=== PATIENT | female | born 1985 | race African-American/Black ===

== ENCOUNTER 2022-09-12 07:52 | Observation (INO) | payer BC ==
[~2022-09-12] VITALS: Ht 157.5 cm; Wt 69.9 kg
[2022-09-12] MEDS ORDERED: NIFEdipine 10 MG CAPLF PO SCH ×2 (08:25→12:00)
[2022-09-12] MEDS ORDERED: BETAMETH ACET/BETAMETH NA PH 30 MG/5 ML VIAL IM SCH (08:25)
[2022-09-12] MEDS: TERBUTALINE 1 MG/ML VIAL SUBQ SCH ×2 (08:49→11:21)
[2022-09-12 09:14] LABS: HEMATOCRIT 33.8 % (36-48); HEMOGLOBIN 11.2 g/dL (12.0-16.0); MEAN CORPUSCULAR HEMOGLOBIN 29 pg (27-31); MEAN CORPUSCULAR HGB CONC 33 g/dL (33-37); MEAN CORPUSCULAR VOLUME 87.7 fL (80-94); PLATELET COUNT (AUTO) 173 K/uL (140-450); RED BLOOD CELL COUNT(AUTO) 3.85 MIL/uL (4.20-5.40); RED CELL DISTRIBUTION WIDTH 13.5 % (11.6-13.7); WHITE BLOOD COUNT (AUTO) 8.5 K/uL (4.8-10.8)
[2022-09-12 09:34] VITALS: BP 117/71
[2022-09-12 09:34] LABS: ALBUMIN 2.5 g/dL (3.4-5.0); AMYLASE 82 U/L (25-115); ANION GAP 12.6 (8-16); ASPARTATE AMINOTRANSFERASE 18 U/L (15-37); CARBON DIOXIDE 25.3 mmol/L (21-32); CHLORIDE 102 mmol/L (98-107); CREATININE 0.6 mg/dL (0.6-1.3); GFR ARICAN-AMERICAN 146 mL/min (>90); GLUCOSE 86 mg/dL (74-106); POTASSIUM 3.9 mmol/L (3.5-5.1); SODIUM SERUM 136 mmol/L (136-145); TOTAL BILIRUBIN 0.3 mg/dL (0.0-1.0); UREA NITROGEN, BLOOD 6 mg/dL (7-18)
[2022-09-12 12:01] LABS: LYMPHOCYTES % (MANUAL) 14 % (20-46); MONOCYTES % (MANUAL) 8 % (5-12)
[2022-09-12 12:03] LABS: MYELOCYTES % 1 % (0-0)
[2022-09-12 12:04] LABS: EOSINOPHILS % (MANUAL) 1 % (0-4)
--- NOTE | 2022-09-12 13:52 | NUR ---
PATIENT HAS BEEN SCREENED AND CATEGORIZED LOW NUTRITION RISK. PATIENT WILL BE SEEN WITHIN 7 DAYS OF ADMISSION. 09/19/[address]
[2022-09-13 09:49] LABS: LIPASE 25 U/L (73-393)
== END 2022-09-12 14:20 | disposition home or self-care (01) ==
LOC: MLD 07:52
PROVIDERS: ADMIT Obstetrics & Gynecology; ATTEND Obstetrics & Gynecology
DX: O26.893 Other specified pregnancy related conditions, third trimester (principal); Z20.822 Contact with and (suspected) exposure to COVID-19; R10.9 Unspecified abdominal pain; O99.891 Other specified diseases and conditions complicating pregnancy; M54.9 Dorsalgia, unspecified; O26.853 Spotting complicating pregnancy, third trimester; Z3A.34 34 weeks gestation of pregnancy
CPT/HCPCS: 36415; 59025; 76700; 76805; 76817; 80053; 81000; 82150; 82731; 83690; 85025; 87426; 96372; G0378; G0379; J0702; J3105; Q0092